=== PATIENT | male | born 1980 | race Caucasian/White ===

== ENCOUNTER 2016-04-24 19:00 | Emergency (ER) | payer MEDICAID ==
[~2016-04-24] VITALS: Ht 186.7 cm; Wt 74.8 kg
[~2016-04-24 19:00] MED LIST: AMOXICOT500 M1 PO; AMOXIL500 MG PO; AUGMENTIN 875-1 EACH PO; CIPRO 500MG TA500 MG PO; FLEXERIL10 MG PO; FLOMAX 0.4MG C0.4 MG PO; HYCODAN COUMPO473 ML OR; HYDROCODONE1 TABLET PO; HYOSCYAMINE0.125 M1 PO; IBUPROFEN600 MG PO; KEFLEX 500MG.500 MG PO; KEFLEX500 M1 PO; LORTAB 5/500 501 TAB PO; MACROBID 100MG100 MG PO; MEDROL 4MG. DOSE4 MG PO; MINOCYCLINE 10100 MG PO; NAPROSYN 375MG375 MG PO; NOMEDS *; NOMEDS XX; NORCO 325 MG-51 TAB PO; PERCOCET 5/3251 EACH PO; PERCOGESIC EXTR1 TAB PO; PHENERGAN 25MG.25 M1 PO; PREDNISONE 20MG20 MG PO; PROZAC 20MG CAP20 MG PO; ROBITUSSIN120 ML/BOT PO; TESSALON PERLE100 M1 PO; TORADOL10 M2 PO; TRAMADOL50 M1 PO; TYLENOL W/CODEI1 TAB PO; VIBRAMYCIN 100100 MG PO; ZOFRAN ODT4 MG PO; ZOFRAN4 MG PO
[2016-04-24 19:29] LABS: LYMPH # 1.2 K/mm3 (0.7-4.5); LYMPH % 14.7 % (10-50)
[2016-04-24] MEDS ORDERED: FLEXERIL10 MG PO (21:13)
[2016-04-24] MEDS ORDERED: PERCOGESIC1 TAB PO (21:13)
--- NOTE | 2016-04-24 21:14 | Emergency Room Report ---
History of Present Illness Time Seen by MD 2030 Presenting Problem in Triage Pt arrived:Walked Presenting Problem:reports pain in the left flank area. reports it feels like someone is hitting him. does have a hx of kidney stones. reports that he was seen a few months ago, had a ct done that showed bilateral kidney stones Onset of symptoms date/time:04/24/16/ or onset unknown for:MEDICAL HX UNKNOWN Treatment Prior to Arrival: [facility] Provided by: Sepsis Risk Assessment: Temp: 98.5 B/P: 138/81 MAP: 96 Pulse: 111 Resp: 16 Recent fever? N Clinical Suspician of Infection? N Mental Status: 1 - Regular (Normal Baseline) Sepsis Risk:Low Sepsis Risk Have you (or family members/close friends) recently traveled outside the [place]? N If Yes, where/when: Have you had exposure to infectious disease within the past month? N TB? Other? Specify: Source patient, RN notes reviewed, RN/MD Exam Limitations no limitations Comment This is a 36-year-old female arriving to the emergency room with RIGHT upper back pain, radiating to the RIGHT lower quadrant abdomen, off-and-on for the past 2 weeks. Patient stated he has a history of kidney stones in the past. He denies any recent travel or exposure to sick contacts. Patient appears in no acute distress, playing with his cell phone during my examination. ALLERGIES Coded Allergies: acetaminophen (From DARVOCET-N) (11/16/15) ciprofloxacin (From CIPRO) (11/16/15) codeine (11/16/15) etodolac (04/24/16) naproxen (From NAPROSYN) (11/16/15) propoxyphene (From DARVOCET-N) (11/16/15) tramadol (11/16/15) History Medical History General CAD? No Angina: No ME: No Hypertension? No Hyperlipidemia? No CHF? No DVT? No PE? No COPD? No Asthma? No Anemia? No GERD? No Gastric ulcers? No GI Bleed? No Hernia? No Thyroid Problems? No Hypothyroidism? No CVA? No Seizures? No Diabetes? No Insulin Dependent: No Insulin Pump: No Home FSBS? No Renal Insuffiency? No End Stage Renal Disease? No UTI? No Stones? Yes BPH? No GB Disease: No Nephritic Syndrome? No Asplenia? No Hepatitis? No Sickle Cell Disease? No Arthritis? Yes Migraines? No Cataracts? No Glaucoma? No MRSA? No HIV? No TB? No Anxiety? No Depression? Yes Cancer? No More? No Immunization Hx DT/Tetanus 1-4 YRS Surgical Hx Previous Surgery?Y WISDOM TEETH EXTRACTION R HAND TENDON REPAIRED Family History Family Hx Diabetes Yes Hypertension Yes Hyperlipidemia Yes Social History Smoking Hx Smoker: Current Every Day Smoker Tobacco: Yes Type Cigarettes Packs/day < 1 Pack Alcohol Alcohol: No Review of Systems All Other Systems Reviewed and Negative Gastrointestinal abdominal pain (RIGHT lower quadrant) Musculoskeletal back pain Physical Exam Vital Signs Vital Signs Date Time Temp Pulse Resp B/P Pulse O2 O2 Flow FiO2 Ox Delivery Rate 04/24 2131 111 16 138/81 96 04/24 2052 16 04/24 2021 98.5 109 18 138/91 97 04/24 191 98.1 100 16 131/79 97 04/24 190 98.1 100 16 131/79 97 General Appearance normal appearance, WD/WN, no apparent distress Neck normal inspection, non-tender, supple, full range of motion Respiratory Status Yes: trachea midline, chest symmetrical, non tender chest. No: respiratory distress. Lung Sounds bilateral: normal breath sounds, lungs clear. 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 No Comment Consistent with his CAT scan reading patient appears to have a disc bulge at L4- L5, and he was referred to Dr. Luis Lakhani in [place] for additional outpatient workup. Patient is in stable medical condition, with minimal symptoms at this time. Results/Orders Laboratory Tests 04/24/162030: Opiates Screen Cancelled, Urine Methadone Screen Cancelled, Barbiturates Cancelled, Phencyclidine Screen Cancelled, Amphetamines Screen Cancelled, Benzodiazepines Screen Cancelled, Cocaine Screen Cancelled, Marijuana (THC) Screen Cancelled 04/24/16 1930: Sodium 138, Potassium 3.4 L, Chloride 101, Carbon Dioxide 30, BUN 11, Creatinine 0.8, Estimated Creat Clear 135, Estimated GFR (MDRD) 109, Glucose 131 H, Calcium 8.7, Total Bilirubin 0.3, AST 12 L, ALT 25, Alkaline Phosphatase 69 , Total Protein 7.5, Albumin 3.7, Globulin 3.8 H, Albumin/Globulin Ratio 1.0 L , WBC 8.2, RBC 4.32 L, Hgb 14.0 L, Hct 39.8 L, MCV 92.1, RDW 12.6, Plt Count 217, MPV 5.3 L, Gran % 76.3, Gran # 6.2, Lymphocytes % 14.7, Monocytes % 7.5, Eosinophils % 1.1, Basophils % 0.3, Lymphocytes # 1.2, Monocytes # 0.6, Eosinophils # 0.1, Basophils # 0.0, PUBS MCHC 35.2, MCH 32.4 H 04/24/161926: Urine Color Cancelled, Urine Appearance Cancelled, Urine pH Cancelled, Ur Specific [place] Cancelled Current Medication Orders Sig/Delfino Start time Last Medication Dose Route Stop Time Status Admin Ketorolac 30 MG ONCE ONE 04/24 2099 DCr 04/24 Tromethamine IV 04/24 Sodium Chloride 1,000 ML .Q1H1M 04/24 2099 DCD 04/24 IV 04/24 Sodium Chloride 10 ML PRN PRN 04/24 2099 DCD IV 04/25 2053 Ketorolac 0 .STK-MED ONE 04/24 2046 DCr Tromethamine .ROUTE Levofloxacin/Dextrose 150 ML .STK-MED ONE 04/24 2045 DCr IV Sodium Chloride 1,000 ML .STK-MED ONE 04/24 2045 DC IV Sodium Chloride 10 ML PRN PRN 04/24 1914 DCD IV 04/25 1914 Orders Procedure Date/time Status DIET-NOTHING BY MOUTH 04/[address] ABD & PELVIS W/O CONTRAST 04/[address] ABD/PELVIS REQ 04/24 1915 Active IV SALINE LOCK 04/24 1915 Active CBC WITH AUTO DIFF 02/12 1916 Complete CHEM 12 PROFILE 04/24 1915 Complete XRAY/CT/US XRAY/CT/US CT abdomen, pelvis CT interpretation by discussed w/radiologist CT Results disc bulge L4-L5 Departure Departure Time of Disposition 2109 Disposition DC Home or Self Care(routine) Clinical Impression Primary Impression: Back pain Qualifiers: Back pain location: low back pain Chronicity: acute Back pain laterality: right Sciatica presence: without sciatica Qualified Code: M54.5 - Low back pain Condition STABLE Referrals Kar LEDBETTER,Luis Lewis: [facility] Patient Instructions DI for Low Back Pain, Low Back Pain Additional Instructions Please take the pain medications as directed, follow-up with Dr. Luis Lakhani at your earliest convenience. Discharge Counseling Counseled pt/family regarding diagnosis, test results, medications/RX, home care, follow up needs Comment Please take the pain medications as directed, follow-up with Dr. Luis Lakhani at your earliest convenience. Prescriptions Current Visit Scripts ACETAMINOPHEN/DIPHENHYDRAMINE (Percogesic 325-12.5 MG Tablet) 1 TAB PO BIDP PRN pain #20 TAB Cyclobenzaprine Hcl (Flexeril) 10 MG PO TID PRN pain #30 TAB ED Critical Care Critical Care No at 6455
[2016-04-24 21:32] VITALS: BP 138/81
--- NOTE | 2016-04-25 08:50 | RADIOLOGY REPORT PS360 ---
CT ABD PELVIS W/O CONTRAST CLINICAL INDICATION: Right flank pain FLANK PAIN, HX OF KIDNEY STONES ORDERING PHYSICIAN: Isidro Daugherty MD PATIENT AGE: 36 years COMPARISON: 01/24/2016 TECHNIQUE: Axial images obtained with sagittal and coronal reformats. PROCEDURE: Oral Contrast: None IV Contrast: None . FINDINGS: Lower thorax: No acute finding ABDOMEN: Liver: No masses or biliary dilatation. Gallbladder: Nondistended. No radio opaque stones. Pancreas: No masses or peripancreatic fluid collections. Spleen: Unremarkable. Adrenals: Unremarkable Kidneys/ureters: Bilateral nonobstructing renal calculi. No ureteral calculi or hydronephrosis. Stomach bowel: Nondistended. No obvious mass or thickening. Appendix: No evidence of appendicitis. PELVIS: Reproductive: Unremarkable Bladder: Nondistended. No obvious stones or masses. ABDOMEN & PELVIS: Peritoneum: No abnormal fluid collections. No obvious inflammatory changes. No free air. Lymph nodes: No enlarged lymph nodes apparent. Vasculature: No evidence of abdominal aortic aneurysm. No retroperitoneal hemorrhage evident. Bones: No acute fracture. Broad-based right paracentral/foraminal disc protrusion at L4-L5. MRI may be of further value if clinically warranted to evaluate for any neural impingement. IMPRESSION: 1. Nonobstructing bilateral nephrolithiasis. 2. Broad-based right paracentral and foraminal disc protrusion at L4-L5 which may be better evaluated with MRI if clinically warranted
[2016-04-30] MEDS ORDERED: NORCO 325 MG-51 TAB PO (16:24)
== END 2016-04-24 21:33 | disposition home or self-care (01) ==
LOC: ER 19:00
PROVIDERS: Emergency Medicine
DX: M54.5 Low back pain (principal); Z72.0 Tobacco use

== ENCOUNTER 2016-12-02 09:29 | Emergency (ER) | payer MEDICAID ==
[~2016-12-02] VITALS: Ht 185.4 cm; Wt 68.0 kg
[~2016-12-02 09:29] MED LIST changes: +GABAPENTIN300 M1 PO; +NAPROXEN500 M1 PO; +PERCOGESIC1 TAB PO; +PROTONIX40 MG/PACK PO; +PYRIDIUM200 M2 PO; +SEPTRA DS 800 M1 TAB PO
--- NOTE | 2016-12-02 09:36 | Emergency Room Report ---
History of Present Illness Time Seen by MD Joseph Comment The patient has several complaints. His primary complaint is low back pain. He says he has lumbar spine pain for one week. He does not recall any injury or unusual activity, but says that he works at [employer] and does heavy lifting as part of his job. His pain increases with movement. He says it has caused him to work slower for the past week. He called his primary care provider, Marianela, today and says he could not get in so he came to the emergency department. He says he has no appointment to see her on Monday. He says he is ALLERGIC to naproxen and etodolic. He has been taking Advil which helps somewhat. He says that his primary care provider has previously had him on Vicodin and Tylenol 3 for pain. He also says that he has a burning sensation in his nose and sinuses when he bends forward. He has a prior history of a facial fracture from trauma and states that he believes it is due to that. He denies any rhinorrhea or fever. He says he has had this problem in the past. It has been attributed to his previous facial fracture. He also has a sensation of bees stinging him in his LEFT arm and leg that comes and goes for the past month. It is not present currently. He cannot identify anything that seems to bring it on. Denies associated symptoms. No neck pain. No chest pain or shortness of breath. ALLERGIES Coded Allergies: acetaminophen (From DARVOCET-N) (12/02/16) ciprofloxacin (From CIPRO) (12/02/16) codeine (12/02/16) etodolac (12/02/16) naproxen (From NAPROSYN) (12/02/16) propoxyphene (From DARVOCET-N) (12/02/16) tramadol (12/02/16) Home Medications Reported Medications Gabapentin 300 MG PO BID #60 Fluoxetine Hcl (Prozac 20MG Capsule(Generic)) 20 MG PO DAILY History Medical History General CAD? No Angina: No CA: No Hypertension? No Hyperlipidemia? No CHF? No DVT? No PE? No COPD? No Asthma? No Anemia? No GERD? No Gastric ulcers? No GI Bleed? No Hernia? No Thyroid Problems? No Hypothyroidism? No CVA? No Seizures? No Diabetes? No Insulin Dependent: No Insulin Pump: No Home FSBS? No Renal Insuffiency? No End Stage Renal Disease? No UTI? No Stones? Yes BPH? No GB Disease: No Nephritic Syndrome? No Asplenia? No Hepatitis? No Sickle Cell Disease? No Arthritis? Yes Migraines? No Cataracts? No Glaucoma? No MRSA? No HIV? No TB? No Anxiety? No Depression? Yes Cancer? No More? No Immunization Hx DT/Tetanus 1-4 YRS Surgical Hx Previous Surgery?Y WISDOM TEETH EXTRACTION R HAND TENDON REPAIRED Family History Family Hx Diabetes Yes Hypertension Yes Hyperlipidemia Yes Social History Smoking Hx Packs/day < 1 Pack Alcohol Alcohol: No Review of Systems All Other Systems Reviewed and Negative Constitutional denies diaphoresis, denies fever ENT see HPI. Respiratory denies cough, denies shortness of breath Cardiovascular denies chest pain Gastrointestinal denies abdominal pain Musculoskeletal back pain, denies neck pain Physical Exam Vital Signs Vital Signs Date Time Temp Pulse Resp B/P Pulse O2 O2 Flow FiO2 Ox Delivery Rate 12/02 1006 78 18 121/80 99 12/02 0935 97.6 80 18 118/80 99 General Appearance normal appearance, WD/WN Eye Exam - bilateral eye normal exam, bilateral eye PERRL, bilateral eye EOMI Ear, Nose, Throat hearing grossly normal, normal ENT inspection, tympanic membranes normal, throat clear. Nares clear without masses or lesions. Sinuses nontender. No facial edema. Neck normal inspection, non-tender, supple, full range of motion Respiratory Status Yes: trachea midline, chest symmetrical, non tender chest. No: respiratory distress. Lung Sounds bilateral: normal breath sounds, lungs clear. 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 No Anthony was queried for this patient? Yes Comment [id number] 1 rx 7 norco on 04/30/16 Departure Departure Disposition DC Home or Self Care(routine) Clinical Impression Primary Impression: Lumbar strain Qualifiers: Encounter type: initial encounter Qualified Code: S39.012A - Strain of muscle, fascia and tendon of lower back, initial encounter Condition STABLE Referrals MARIANELA LIMA (Family) Patient Instructions DI for Low Back Pain Additional Instructions Additional instructions for BACK PAIN: See Marianela on Monday as previously scheduled. Return immediately if back pain becomes intolerable, or if fever, numbness or weakness of your legs, loss of control of your bowels or bladder. Prescriptions Current Visit Scripts Meloxicam (Mobic) 7.5 MG PO DAILY #7 TAB Methocarbamol (Robaxin 750MG) 750 MG PO TIDP PRN back pain #20 TAB ED Critical Care Critical Care No at 1020
[2016-12-02] MEDS ORDERED: Mobic7.5 MG PO (09:54)
[2016-12-02] MEDS ORDERED: ROBAXIN-750750 MG PO (09:54)
[2016-12-02 10:06] VITALS: BP 121/80
== END 2016-12-02 10:06 | disposition home or self-care (01) ==
LOC: ER 09:29
DX: S39.012A Strain of muscle, fascia and tendon of lower back, initial encounter (principal); Z79.899 Other long term (current) drug therapy; F32.0 Major depressive disorder, single episode, mild; Z88.8 Allergy status to other drugs, medicaments and biological substances

== ENCOUNTER → 2016-12-07 | Outpatient (CLI) | payer MEDICAID ==
[~2016-12-07] MED LIST changes: +Mobic7.5 MG PO; +ROBAXIN-750750 MG PO
--- NOTE | 2016-12-07 10:18 | RADIOLOGY REPORT PS360 ---
CHEST(2 VIEWS-NOT PORTABLE) HISTORY: Cough, chest pain, smoker CHEST PAIN ORDERING PHYSICIAN: NEVIN MCNULTY PATIENT AGE: 36 years COMPARISON: 11/16/2015 FINDINGS: The cardiomediastinal silhouette and pulmonary vascularity are within normal limits. The lungs are clear without infiltrates, suspicious nodules, or pleural effusions. No acute bony abnormalities. There are calcified nodes in the azygos region. IMPRESSION: Negative chest, no acute finding
[2016-12-07 10:43] LABS: BUN 7 mg/dL (7-18)
[2016-12-07 11:03] LABS: GFR (ESTIMATED) 95 ML/MIN (>60)
[2016-12-07 12:16] LABS: HEMOGLOBIN 13.8 g/dL (14.1-18.0)
[2016-12-07 12:17] LABS: LYMPH # 1.5 K/mm3 (0.7-4.5); LYMPH % 26.6 % (10-50)
== END ==
LOC: LAB 09:16
PROVIDERS: Physician Assistant
DX: R07.9 Chest pain, unspecified (principal)